=== PATIENT | male | born 1965 | race Caucasian/White ===

== ENCOUNTER 2024-10-02 15:39 | Observation (INO) ==
[2024-10-02] MEDS ORDERED: Lorazepam PYXIS KEY PRN (17:03)
[2024-10-02] MEDS: LORazepam 2 mg VIAL 1 ml IV PUSH ONE (17:41)
[2024-10-02] MEDS: Thiamine 100 MG/ML 2 ml VIAL 100 MG, Folic Acid IV 1 MG, Multiple Vitamin IV ADULT 10 M... IV ONE (17:51)
[2024-10-02 18:35] LABS: ALT 58 U/L (7-52); Acetaminophen < 15 mcg/mL; Albumin 3.9 g/dL (3.2-5.2); Albumin/Globulin Ratio 1.2 (1-3); Alcohol, S 309 mg/dL (<13); Alkaline Phosphatase 109 U/L (35-149); Anion Gap 12 mmol/L (2-16); Blood Urea Nitrogen 9 mg/dL (6-24); CO2 Carbon Dioxide 28 mmol/L (22-32); Calcium 8.4 mg/dL (8.6-10.3); Chloride 99 mmol/L (101-111); Creatinine, Serum 0.63 mg/dL (0.67-1.17); Globulin 3.2 g/dL (2-4); Glucose 111 mg/dL (70-100); Salicylate < 2.50 mg/dL (<30); Sodium 139 mmol/L (135-145); Total Bilirubin 0.8 mg/dL (0.2-1.0); Total Protein 7.1 g/dL (6.4-8.9); eGFR CKD-EPI 110.3 (>60)
[2024-10-02 18:50] LABS: TSH Ultra Thyroid Stim Horm 4.04 mcIU/mL (0.34-5.60)
[2024-10-02 19:18] LABS: ABS Lymphocytes 0.5 10^3/uL (1.0-4.8); ABS Monocytes 0.4 10^3/uL (0.0-1.1); ABS Neutrophils 1.9 10^3/uL (1.5-7.6); Eosinophil % 0.3 %; Hematocrit 35.2 % (38-53); Mean Corpuscular Hemoglobin 36.2 pg (27-33); Mean Corpuscular Hgb Conc 34.1 g/dL (31-36); Mean Corpuscular Volume 106.2 fL (80-97); Mean Platelet Volume 8.2 fL (7.5-11.2); Platelet Count 75 10^3/uL (150-450); Red Blood Count 3.31 10^6/uL (4.06-5.63); White Blood Count 2.9 10^3/uL (3.6-10.2)
[2024-10-02] MEDS: PHENobarbital IV 65 MG/ML 1 ml VIAL IV ONE ×2 (19:59→21:58)
[2024-10-02] MEDS: Iohexol 350 (CONTRAST) 500 ML MDV IV ONE ×2 (20:22→23:54)
[2024-10-02 20:58] LABS: Urine Benzodiazepine Screen None Detected (None Detect); Urine Cannabinoids Screen None Detected (None Detect); Urine Opiates Screen None Detected (None Detect)
[2024-10-02] MEDS: cefTRIAXone 1 gm/50 mL D5W 1 GM/50 ML BAG IV ONE (21:59)
[2024-10-03] MEDS: Lactated Ringers 1000 ml BAG 500 ML IV ONE (00:09)
[2024-10-03] MEDS: Thiamine 100 MG/ML 2 ml VIAL (200 mg) IM ONE (00:12)
[2024-10-03] MEDS: PHENobarbital IV 65 MG/ML 1 ml VIAL IV ONE ×2 (01:18→04:46)
[2024-10-03 01:31] LABS: Urine Appearance Clear; Urine Bilirubin Negative (Negative); Urine Blood Negative (Negative); Urine Color Light-Yellow; Urine Glucose Negative (Negative); Urine Ketones Negative (Negative); Urine Nitrite Negative (Negative); Urine Protein Negative (Negative); Urine Specific Gravity 1.049 (1.002-1.030); Urine Urobilinogen Negative (Negative); Urine pH 6.5 (5.0-8.0)
[2024-10-03 01:36] LABS: INR 1.12 (0.85-1.14)
[2024-10-03 02:14] LABS: AST Redraw 110 U/L (13-39); Magnesium 1.1 mg/dL (1.9-2.7); Phosphorus 3.4 mg/dL (2.5-5.0); Potassium Redraw 3.8 mmol/L (3.5-5.0)
[2024-10-03 02:34] LABS: Ferritin 1247.8 ng/mL (24-336)
[2024-10-03 02:40] LABS: Folate > 20.00 ng/mL (5.90-24.80)
[2024-10-03 02:41] LABS: Vitamin B12 547 pg/mL (180-914)
[2024-10-03] MEDS: Magnesium Sulf 4 GM/100 ML IV 4,000 MG/100 ML BAG IVPB ONE ×2 (04:46→21:50)
[2024-10-03] MEDS: Azithromycin 500 mg/250 ml NS 500 MG/250 ML BAG IVPB SCH (05:18)
[2024-10-03] MEDS: cefTRIAXone 1 gm/50 mL D5W 1 GM/50 ML BAG IV SCH (06:42)
[2024-10-03 07:31] LABS: ABS Lymphocytes 0.5 10^3/uL (1.0-4.8); ABS Monocytes 0.3 10^3/uL (0.0-1.1); ABS Neutrophils 1.7 10^3/uL (1.5-7.6); Hematocrit 30.7 % (38-53); Hemoglobin 10.9 g/dL (13.2-16.3); Lymphocyte % 20.6 %; Mean Corpuscular Hemoglobin 37.8 pg (27-33); Mean Corpuscular Hgb Conc 35.5 g/dL (31-36); Mean Corpuscular Volume 106.6 fL (80-97); Mean Platelet Volume 7.8 fL (7.5-11.2); Platelet Count 52 10^3/uL (150-450); Red Blood Count 2.88 10^6/uL (4.06-5.63); White Blood Count 2.6 10^3/uL (3.6-10.2)
[2024-10-03 07:42] LABS: Albumin 3.5 g/dL (3.2-5.2); Albumin/Globulin Ratio 1.2 (1-3); Calcium 7.6 mg/dL (8.6-10.3); Creatinine, Serum 0.54 mg/dL (0.67-1.17); Globulin 2.9 g/dL (2-4); Potassium 3.6 mmol/L (3.5-5.0); Total Protein 6.4 g/dL (6.4-8.9); eGFR CKD-EPI 115.5 (>60)
[2024-10-03] MEDS: Multivitamins/Minerals TAB PO SCH (09:22)
[2024-10-03] MEDS: PHENobarbital IV 65 MG/ML 1 ml VIAL IV SCH (09:24)
[2024-10-03] MEDS ORDERED: cefTRIAXone 1 gm/50 mL D5W 1 GM/50 ML BAG IV SCH (21:00)
[2024-10-03 21:26] LABS: Magnesium 2.6 mg/dL (1.9-2.7)
[2024-10-04 06:28] LABS: Albumin 3.3 g/dL (3.2-5.2); Albumin/Globulin Ratio 1.2 (1-3); Calcium 7.5 mg/dL (8.6-10.3); Creatinine, Serum 0.55 mg/dL (0.67-1.17); Globulin 2.8 g/dL (2-4); Magnesium 2.4 mg/dL (1.9-2.7); Potassium 3.5 mmol/L (3.5-5.0); Total Bilirubin 1.3 mg/dL (0.2-1.0); Total Protein 6.1 g/dL (6.4-8.9); eGFR CKD-EPI 114.9 (>60)
[2024-10-04 06:40] LABS: ABS Lymphocytes 0.5 10^3/uL (1.0-4.8); ABS Monocytes 0.5 10^3/uL (0.0-1.1); ABS Neutrophils 1.7 10^3/uL (1.5-7.6); Eosinophil % 1.2 %; Hematocrit 31.1 % (38-53); Mean Corpuscular Hemoglobin 37.4 pg (27-33); Mean Corpuscular Hgb Conc 35.3 g/dL (31-36); Mean Corpuscular Volume 106.1 fL (80-97); Mean Platelet Volume 9.1 fL (7.5-11.2); Nucleated Red Blood Cells % 0.1 %/100WBC (0.0-0.8); Platelet Count 55 10^3/uL (150-450); Red Blood Count 2.93 10^6/uL (4.06-5.63); Red Cell Distribution Width 15.1 % (12-17); White Blood Count 2.8 10^3/uL (3.6-10.2)
[2024-10-04 14:16] VITALS: BP 113/58
[2024-10-04 21:12] LABS: Haptoglobin <14 mg/dL (30 - 200)
[2024-10-07 07:37] LABS: Anaplasma phagocytophilum Negative (Negative); B. miyamotoi PCR, B Negative (Negative); Babesia divergens/MO-1 Negative (Negative); Babesia ducani Negative (Negative); Ehrlichia chaffeensis Negative (Negative); Ehrlichia ewingii/canis Negative (Negative); Ehrlichia muris eauclairensis Negative (Negative)
== END 2024-10-04 15:32 | disposition home or self-care (01) ==
LOC: ED 15:39 → EDHOLD 15:39 → SUATTDRO 22:37 → EDHOLD 10-03 05:16 → MED 10-03 12:00
PROVIDERS: ADMIT Hospitalist; ATTEND Internal Medicine